=== PATIENT | female | born 1935 | race Caucasian/White ===

== ENCOUNTER 2022-08-22 21:00 | Observation (INO) | payer OTHER, MEDICAID ==
[~2022-08-22] VITALS: Ht 142.2 cm; Wt 72.2 kg
[2022-08-22 21:08] VITALS: BP_SYST 150
--- NOTE | 2022-08-22 21:16 | NUR ---
PT HERE ACCOMPANIED BY HER SON C/O LT FLANK PAIN SINCE THIS AM. PT DENIES N./V/D, DENIES DYSURIA PT STATED THAT GOT WORST WHEN SITTING AND LYING. PT DENIES FEVER. PENDING MD HAWTHORNE
--- NOTE | 2022-08-22 22:16 | NUR ---
PT ASSISTED TO RM3 VIA WHEELCHAIR ACCOMPANIED BY HER SON, REPORT GIVEN TO MADISON LOPEZ
[2022-08-22 22:19] LABS: HEMOGLOBIN 12.7 g/dL (12.0-16.0); WHITE BLOOD COUNT (AUTO) 8.6 K/uL (4.8-10.8)
[2022-08-22 22:29] LABS: MEAN CORPUSCULAR HEMOGLOBIN 34 pg (27-31); MEAN CORPUSCULAR HGB CONC 34 % (32-36); MEAN CORPUSCULAR VOLUME 100 fL (79.0-98.0); PLATELET COUNT (AUTO) 70 K/uL (130-430); RED BLOOD CELL COUNT(AUTO) 3.72 MIL/uL (4.2-6.2); RED CELL DISTRIBUTION WIDTH 14.9 % (9.0-15.0)
[2022-08-22 22:34] LABS: ANION GAP 3 (5-15); CALCIUM 9.9 mg/dL (8.4-11.0); CHLORIDE 103 mmol/L (98-107); CREATININE 1.14 mg/dL (0.55-1.30); GLUCOSE 111 mg/dL (70-99); POTASSIUM 4.4 mmol/L (3.5-5.1); UREA NITROGEN, BLOOD 22 mg/dL (8-21)
[2022-08-22 22:40] LABS: ALANINE AMINOTRANSFERASE 22 U/L (12-78); ALBUMIN 3.7 g/dL (3.4-4.8); ASPARTATE AMINOTRANSFERASE 23 U/L (10-37); TOTAL BILIRUBIN 0.8 mg/dL (0.0-1.0)
[2022-08-22 22:50] LABS: BILIRUBIN,URINE NEGATIVE (NEGATIVE); BLOOD, URINE NEGATIVE (NEGATIVE); CLARITY/URINE CLEAR (CLEAR); COLOR,URINE YELLOW (YELLOW); GLUCOSE,URINE NEGATIVE (NEGATIVE); KETONES,URINE TRACE (NEGATIVE); LEUKOCYTE ESTERASE ,URINE NEGATIVE (NEGATIVE); NITRITE, URINE NEGATIVE (NEGATIVE); PH,URINE 5.5 (5.0-8.0); PROTEIN URINE 2+ (NEGATIVE)
[2022-08-22 22:59] LABS: BAND % (MANUAL) 4 % (0-6); BASOPHILS % (MANUAL) 0 % (0-2); EOSINOPHILS % (MANUAL) 3 % (0-7); MONOCYTES % (MANUAL) 2 % (0-11)
[2022-08-22 23:00] LABS: LYMPHOCYTES % (MANUAL) 46 % (20-46)
[2022-08-22 23:25] LABS: BACTERIA,URINE None Seen /HPF (None Seen); MUCUS,URINE None Seen /LPF (None Seen); RBC,URINE 0-3 /HPF (0-3); WBC,URINE NONE SEEN /HPF (0-3)
--- NOTE | 2022-08-22 23:51 | NUR ---
Pt sating at 86% on RA. Pt put on NC at 2L, now O2 sat at 95%.
[2022-08-23] MEDS ORDERED: ONDANSETRON HCL 4 MG/2 ML VIAL IVP ONE
[2022-08-23] MEDS ORDERED: ASPIRIN 81 MG TAB.CHEW PO ONE
[2022-08-23] MEDS ORDERED: MORPHINE 2 MG/ML INJ. SYRINGE IVP ONE
--- NOTE | 2022-08-23 00:11 | NUR ---
COVID OBTAINED AND GIVEN TO LAB LABELED
--- NOTE | 2022-08-23 00:38 | NUR ---
Shannon lara in ED - 08/23/22 at 0045 by [email or web address] Pt refused abdominal x-ray. made aware.
[2022-08-23] MEDS ORDERED: METOPROLOL TARTRATE 5 MG/5 ML VIAL IVP ONE (02:30)
--- NOTE | 2022-08-23 02:39 | NUR ---
Admit bed requested Patient will be admitted to care of . Admitted to TELE unit. Diagnosis CHF EXACERBATION Inpatient (Yes or No) N Observation (Yes or No) YES Orientation concerns or request close to nursing station (Yes or No) NO Covid Status NEGATIVE On vent or bipap NO Isolation requirements NO Needs a sitter NO From Home (Yes or if No enter name of facility) YES Requires Dialysis (Yes or No) NO Med Rec Completed (Yes of No) PENDING
[2022-08-23] MEDS ORDERED: dilTIAZem HCL IVP 5 MG/ML VIAL IVP PRN (02:45)
--- NOTE | 2022-08-23 03:23 | NUR ---
Influenza swab collected and sent to lab.
--- NOTE | 2022-08-23 03:41 | NUR ---
ADMIT NOTE Received pt from ER to with a diagnosis of CHF. Received SBAR report from JESSICA Rodriguez. Admission process initiated. Patient was transferred from [facility] to bed. Oriented to pain management, safety and call light-teach back done.
--- NOTE | 2022-08-23 03:52 | NUR ---
Patient will be admitted to care of MD Pa. Admitted to Tele unit. Will go to room 112A. Complete and up to date summary report printed. SBAR report given at bedside to receiving JESSICA Teague with opportunity for questions.
[2022-08-23 03:58] VITALS: BP_SYST 122
--- NOTE | 2022-08-23 04:08 | NUR ---
PAGED DR. BELL FOR CRITICAL LAB RESULT FOR TROPONIN-71, WAITING FOR RETURN CALL. WILL CONTINUE TO MONITOR.
--- NOTE | 2022-08-23 04:43 | NUR ---
CONSULTATION PAGED/CALLED Reason for Consultation: CHF Person Who was Notified: YOLANDA Consulting Physician: TROY Clinical Educator Specialty: Ordering Physician: ARABELLA
[2022-08-23] MEDS ORDERED: HYDR12.55 PO (04:56)
[2022-08-23] MEDS ORDERED: METH-374 PO (04:56)
[2022-08-23] MEDS ORDERED: APIX5TAB4 PO (04:56)
[2022-08-23] MEDS ORDERED: LIP10 PO (04:56)
[2022-08-23] MEDS ORDERED: METO-442 PO (04:56)
[2022-08-23 07:23] LABS: BASOPHILS % (AUTO) 0.3 % (0.0-2.0); EOSINOPHILS # (AUTO) 0.2 K/uL (0.0-0.4); EOSINOPHILS % (AUTO) 2.2 % (0.0-4.0); HEMATOCRIT 34.3 % (36-48); HEMOGLOBIN 11.8 g/dL (12.0-16.0); LYMPHOCYTES # (AUTO) 5.3 K/uL (1.0-5.5); LYMPHOCYTES % (AUTO) 66.5 % (20.5-51.5); MEAN CORPUSCULAR HEMOGLOBIN 35 pg (27-31); MEAN CORPUSCULAR HGB CONC 35 % (32-36); MEAN CORPUSCULAR VOLUME 101 fL (79.0-98.0); MONOCYTES # (AUTO) 0.1 K/uL (0.0-1.0); MONOCYTES % (AUTO) 1.6 % (1.7-9.3); NEUTROPHILS # (AUTO) 2.3 K/uL (1.8-7.7); NEUTROPHILS % (AUTO) 29.4 % (40.0-70.0); PLATELET COUNT (AUTO) 56 K/uL (130-430); RED BLOOD CELL COUNT(AUTO) 3.41 MIL/uL (4.2-6.2); RED CELL DISTRIBUTION WIDTH 14.7 % (9.0-15.0)
[2022-08-23 07:45] LABS: ANION GAP 2 (5-15); CALCIUM 9.4 mg/dL (8.4-11.0); CHLORIDE 103 mmol/L (98-107); CREATININE 0.92 mg/dL (0.55-1.30); GLUCOSE 97 mg/dL (70-99); POTASSIUM 4.2 mmol/L (3.5-5.1); UREA NITROGEN, BLOOD 19 mg/dL (8-21)
[2022-08-23 07:49] LABS: ALANINE AMINOTRANSFERASE 17 U/L (12-78); ALBUMIN 3.2 g/dL (3.4-4.8); ASPARTATE AMINOTRANSFERASE 22 U/L (10-37); TOTAL BILIRUBIN 0.6 mg/dL (0.0-1.0)
[2022-08-23 08:15] VITALS: BP_SYST 133
--- NOTE | 2022-08-23 08:16 | NUR ---
Patient stable; resting comfortably in bed with 2D echo in progress with rut Antonio and sonAmado at bedside.
--- NOTE | 2022-08-23 09:20 | NUR ---
Patient stable with right hip xray in progress; son, Freddy at bedside.
[2022-08-23] MEDS ORDERED: METOPROLOL TARTRATE 50 MG TABLET PO ONE (10:00)
[2022-08-23] MEDS ORDERED: ATORVASTATIN 10 MG TABLET PO ONE (10:00)
--- NOTE | 2022-08-23 10:26 | NUR ---
Patient resting comfortably in bed with Dr. Pa and son, Freddy at bedside. Patient stable.
[2022-08-23] MEDS ORDERED: PIPERACILLIN/TAZO 3.375/DEX-IS 50 ML IV SCH (10:45)
--- NOTE | 2022-08-23 10:57 | NUR ---
Scheduled medications given per order. Patient stable with Freddy munoz at bedside.
[2022-08-23] MEDS ORDERED: PIPERACILLIN/TAZO 2.25G/DEX-IS 50 ML IV ONE (11:00)
[2022-08-23] MEDS: D5/0.45 NS 1,000 ML IV SCH (11:13)
--- NOTE | 2022-08-23 11:15 | NUR ---
Patient taken in stable condition via gurney to [facility] Dept for CT lumbar, spine, and pelvis.
[2022-08-23 11:30] VITALS: BP_SYST 117
[2022-08-23] MEDS ORDERED: APIXABAN 2.5 MG TABLET PO ONE (11:30)
[2022-08-23] MEDS ORDERED: methIMAzole 5 MG TABLET PO ONE (11:30)
--- NOTE | 2022-08-23 12:00 | NUR ---
Patient returned to unit in stable condition.
--- NOTE | 2022-08-23 12:41 | NUR ---
Scheduled medications given per order. Patient stable at this time.
[2022-08-23 12:57] LABS: FREE T4 (FREE THYROXINE) 1.5 ng/dl (0.8-1.5); THYROID STIMULATING HORMONE 3.73 uIu/mL (0.36-3.74)
--- NOTE | 2022-08-23 14:37 | NUR ---
Scheduled IV abx given per order. Patient stable; resting comfortably in bed with no distress noted.
[2022-08-23 15:27] VITALS: BP_SYST 133
--- NOTE | 2022-08-23 16:25 | NUR ---
Patient stable; sitting on side of bed with son, Freddy and [id number], Roseann at bedside.
--- NOTE | 2022-08-23 19:00 | NUR ---
Scheduled IV abx given per order with son and [id number] at bedside. Patient stable throughout shift.
[2022-08-23] MEDS: PIPERACILLIN/TAZO 2.25G/DEX-IS 50 ML IV SCH (19:01)
[2022-08-23 20:00] VITALS: BP_SYST 100
[2022-08-23] MEDS: METOPROLOL TARTRATE 50 MG TABLET PO SCH (21:00)
[2022-08-23] MEDS: APIXABAN 2.5 MG TABLET PO SCH (21:00)
[2022-08-24] MEDS: PIPERACILLIN/TAZO 2.25G/DEX-IS 50 ML IV SCH ×4 (00:56→17:35)
[2022-08-24 01:10] VITALS: BP_SYST 149
--- NOTE | 2022-08-24 05:20 | NUR ---
PATIENT WITH DECREASED PLATELETS 56, AND BP 100/83, DR. BELL WAS CALLED X2 WITH NO CALL BACK, MEDICATIONS HELD PER THIS NURSE DUE TO LAB RESULTS AND BP. THIS NURSE TO ENDORSE TO ON COMING SHIFT.
--- NOTE | 2022-08-24 07:05 | NUR ---
receive the patient from the night monitor RN . Ekaterina family on bedside . admitting diagnosis of CHF exacerbation . with bedside commode . no complain of pain . no sign and symptms of respiratory distress . will continue to monitor
--- NOTE | 2022-08-24 09:30 | NUR ---
patient is NPO . . md da silva made rounds . recommended for diet . md da silva ordered swallow evaluation before ordering diet . also check o2 saturation for discharge home .
[2022-08-24] MEDS: METOPROLOL TARTRATE 50 MG TABLET PO SCH (10:03)
[2022-08-24] MEDS: ATORVASTATIN 10 MG TABLET PO SCH (10:03)
[2022-08-24] MEDS: APIXABAN 2.5 MG TABLET PO SCH (10:05)
[2022-08-24] MEDS: D5/0.45 NS 1,000 ML IV SCH (10:12)
--- NOTE | 2022-08-24 10:30 | NUR ---
swallow evaluation was done . suggested mechanical soft diet . full liquid diet. order has been made for the diet . . no signa and symptoms of respiratory distress
--- NOTE | 2022-08-24 11:13 | NUR ---
PT WAS SEEN FOR DYSPHAGIA. PT WAS ABLE TO SAFELY SWALLOW PUREE DIET WITH THIN LIQUID WITHOUT S/S OF ASPIRATION. RECOMMENDATION PUREE DIET WITH THIN LIQUID
[2022-08-24 11:30] VITALS: BP_SYST 90
[2022-08-24] MEDS: methIMAzole 5 MG TABLET PO SCH (14:59)
[2022-08-24 15:32] VITALS: BP_SYST 134
--- NOTE | 2022-08-24 18:41 | NUR ---
will endorse to starter mechanic RN for continuity of care
[2022-08-24 20:00] VITALS: BP_SYST 116
--- NOTE | 2022-08-24 20:00 | NUR ---
OPENING NOTES Received report from day nurse. Pt resting in bed and states no pain. Son is at bedside assisting pt to restroom and monitoring her productive cough. Pt appears tired from coughing and pt is on room air O2 sat 88% - 90%. The plan is to wean pt off O2 and monitor for desaturation over night. Placed pt back on 2L O2 via NC and repositioned from supine to left side. After a few minutes, pt no longer coughing, O2 sat 97%. Son will stay overnight at bedside to assist in mother's care; will continue to monitor
[2022-08-25] MEDS: APIXABAN 2.5 MG TABLET PO SCH ×2 (00:05→09:00)
[2022-08-25] MEDS: METOPROLOL TARTRATE 50 MG TABLET PO SCH ×2 (00:06→08:59)
[2022-08-25] MEDS: D5/0.45 NS 1,000 ML IV SCH ×2 (00:08→12:45)
[2022-08-25] MEDS: PIPERACILLIN/TAZO 2.25G/DEX-IS 50 ML IV SCH ×3 (00:09→12:46)
[2022-08-25 00:22] VITALS: BP_SYST 116
--- NOTE | 2022-08-25 07:30 | NUR ---
received bedside report. pt sitting in bed awake. pt son at bedside. all needs meet at this time. will continue to monitor.
[2022-08-25 08:00] VITALS: BP_SYST 142
[2022-08-25 08:27] LABS: BASOPHILS % (AUTO) 0.4 % (0.0-2.0); EOSINOPHILS # (AUTO) 0.3 K/uL (0.0-0.4); EOSINOPHILS % (AUTO) 3.2 % (0.0-4.0); HEMATOCRIT 36.8 % (36-48); HEMOGLOBIN 12.6 g/dL (12.0-16.0); LYMPHOCYTES # (AUTO) 5.7 K/uL (1.0-5.5); LYMPHOCYTES % (AUTO) 66.2 % (20.5-51.5); MEAN CORPUSCULAR HEMOGLOBIN 34 pg (27-31); MEAN CORPUSCULAR HGB CONC 34 % (32-36); MEAN CORPUSCULAR VOLUME 100 fL (79.0-98.0); MONOCYTES # (AUTO) 0.2 K/uL (0.0-1.0); MONOCYTES % (AUTO) 1.8 % (1.7-9.3); NEUTROPHILS # (AUTO) 2.4 K/uL (1.8-7.7); NEUTROPHILS % (AUTO) 28.4 % (40.0-70.0); PLATELET COUNT (AUTO) 59 K/uL (130-430); RED BLOOD CELL COUNT(AUTO) 3.69 MIL/uL (4.2-6.2); RED CELL DISTRIBUTION WIDTH 14.3 % (9.0-15.0); WHITE BLOOD COUNT (AUTO) 8.6 K/uL (4.8-10.8)
[2022-08-25 08:46] LABS: ANION GAP 3 (5-15); CALCIUM 8.8 mg/dL (8.4-11.0); CHLORIDE 101 mmol/L (98-107); GLUCOSE 97 mg/dL (70-99); POTASSIUM 4.5 mmol/L (3.5-5.1); UREA NITROGEN, BLOOD 17 mg/dL (8-21)
[2022-08-25] MEDS: ATORVASTATIN 10 MG TABLET PO SCH (08:59)
[2022-08-25] MEDS: methIMAzole 5 MG TABLET PO SCH (09:02)
[2022-08-25 09:05] LABS: C-REACTIVE PROTEIN QUANT < 0.2 mg/dL (0-0.5)
[2022-08-25 09:09] LABS: ERYTHROCYTE SEDIMENTATION RATE 5 MM/HR (0-20)
[2022-08-25 12:30] VITALS: BP_SYST 136
[2022-08-25 14:10] VITALS: BP_SYST 132
--- NOTE | 2022-08-25 14:35 | NUR ---
pt dc home. pt sons at bedside. pt and both sons received all education. pt currently on ra. rr even and unlabored. iv removed intact. id band removed. pt has all belongings. pt taken to parking lot via wheelchair. pt taken home via private car by son.
--- NOTE | 2022-08-26 09:39 | NUR ---
Dispo code 01
== END 2022-08-25 14:35 | disposition home health service (06) ==
LOC: SED 21:00 → INTOOBSV 08-23 03:15 → STU 08-23 03:15
PROVIDERS: ADMIT Specialist; ATTEND Specialist
DX: I48.20 Chronic atrial fibrillation, unspecified (principal); Z20.822 Contact with and (suspected) exposure to COVID-19; M25.552 Pain in left hip; R41.82 Altered mental status, unspecified; I11.0 Hypertensive heart disease with heart failure; I50.30 Unspecified diastolic (congestive) heart failure; E78.5 Hyperlipidemia, unspecified; I24.8 Other forms of acute ischemic heart disease; E05.90 Thyrotoxicosis, unspecified without thyrotoxic crisis or storm; M46.1 Sacroiliitis, not elsewhere classified; D69.6 Thrombocytopenia, unspecified; E03.9 Hypothyroidism, unspecified; G89.4 Chronic pain syndrome; I34.81 Nonrheumatic mitral (valve) annulus calcification; J96.00 Acute respiratory failure, unspecified whether with hypoxia or hypercapnia; Z85.6 Personal history of leukemia; Z96.651 Presence of right artificial knee joint; Z79.01 Long term (current) use of anticoagulants; Z98.51 Tubal ligation status; Z79.899 Other long term (current) drug therapy
CPT/HCPCS: 85027; 80053 ×2; 81000; 85007; 36415 ×2; 71045 ×2; 96361 ×3; 96365; 96366 ×3; 96375; 83880 ×2; 84439; 83735; 84443; 85025 ×2; 84484; 93306; 73502; 72131; 72192; 76376; 99285; 87804 ×2; 87426; 93005; 97162; 92610; 80048; 85651; 86140; J3490; J2405; J2543 ×2; J2270; G0378 ×3

== ENCOUNTER 2022-12-24 07:05 | Emergency (ER) | payer OTHER, MEDICAID ==
[~2022-12-24] VITALS: Ht 152.4 cm; Wt 74.8 kg
[~2022-12-24 07:05] MED LIST: APIX5TAB4 PO; HYDR12.55 PO; LIP10 PO; METH-374 PO; METO-442 PO
[2022-12-24 07:29] VITALS: BP_SYST 152
--- NOTE | 2022-12-24 07:37 | NUR ---
PT BIBA AWAKE AND ALERT AOX4, NO SOB OR DISTRESS NOTED. PT WAS BROUGHT IN FOR RUPTURED VERICOSE VEIN ON LEFT FOOT. PT DENIES FALL AND TRAUMA, STATED SHE WAS STANDING WHEN IT RUPTURED. NO ACTIVE BLEEDING UPON ARRIVAL. SON AT BEDSIDE. PAIN SCALE 6/10.
--- NOTE | 2022-12-24 07:42 | NUR ---
MD DR. GRIFFIN AT BEDSIDE
[2022-12-24 07:56] LABS: ANION GAP 6 (5-15); CALCIUM 9.6 mg/dL (8.4-11.0); CHLORIDE 100 mmol/L (98-107); CREATININE 0.83 mg/dL (0.55-1.30); GLUCOSE 115 mg/dL (70-99); UREA NITROGEN, BLOOD 25 mg/dL (8-21)
[2022-12-24 08:00] LABS: ALANINE AMINOTRANSFERASE 21 U/L (12-78); ALBUMIN 3.4 g/dL (3.4-4.8); ASPARTATE AMINOTRANSFERASE 17 U/L (10-37); HEMOGLOBIN 10.9 g/dL (12.0-16.0); MEAN CORPUSCULAR HEMOGLOBIN 34 pg (27-31); MEAN CORPUSCULAR HGB CONC 33 % (32-36); MEAN CORPUSCULAR VOLUME 103 fL (79.0-98.0); PLATELET COUNT (AUTO) 62 K/uL (130-430); RED BLOOD CELL COUNT(AUTO) 3.21 MIL/uL (4.2-6.2); RED CELL DISTRIBUTION WIDTH 15.6 % (9.0-15.0); TOTAL BILIRUBIN 1.4 mg/dL (0.0-1.0); WHITE BLOOD COUNT (AUTO) 14.5 K/uL (4.8-10.8)
[2022-12-24 09:54] LABS: ATYPICAL LYMPHOCYTES % 25 % (0-0); BASOPHILS % (MANUAL) 0 % (0-2); EOSINOPHILS % (MANUAL) 0 % (0-7); LYMPHOCYTES % (MANUAL) 60 % (20-46); MONOCYTES % (MANUAL) 0 % (0-11)
[2022-12-24 11:51] VITALS: BP_SYST 133
--- NOTE | 2022-12-24 11:54 | NUR ---
Patient given written and verbal discharge instructions and verbalizes understanding. ER MD DR ONEILLdiscussed with patient the results and treatment provided. Patient in stable condition. ID arm band removed. Patient educated on pain management and to follow up with PMD. Pain Scale 4/10. Opportunity for questions provided and answered. Medication side effect fact sheet provided.
== END 2022-12-24 11:51 | disposition home or self-care (01) ==
LOC: SED 07:05
DX: I83.893 Varicose veins of bilateral lower extremities with other complications (principal); I11.0 Hypertensive heart disease with heart failure; I50.9 Heart failure, unspecified; D69.6 Thrombocytopenia, unspecified; I48.91 Unspecified atrial fibrillation; Z88.5 Allergy status to narcotic agent; Z79.899 Other long term (current) drug therapy
CPT/HCPCS: 36415; 71045; 80053; 83880; 84484; 85007; 85027; 93005; 93970; 99285

== ENCOUNTER 2022-12-29 14:55 | Emergency (ER) | payer OTHER, MEDICAID ==
[~2022-12-29] VITALS: Ht 160 cm; Wt 81.6 kg
[2022-12-29 14:58] VITALS: BP_SYST 135
[2022-12-29] MEDS ORDERED: KETOROLAC TROMETHAMINE 30 MG VIAL IM ONE (15:15)
[2022-12-29 16:02] LABS: HEMATOCRIT 28.7 % (36-48); HEMOGLOBIN 9.5 g/dL (12.0-16.0); MEAN CORPUSCULAR HEMOGLOBIN 35 pg (27-31); MEAN CORPUSCULAR HGB CONC 33 % (32-36); MEAN CORPUSCULAR VOLUME 105 fL (79.0-98.0); PLATELET COUNT (AUTO) 55 K/uL (130-430); RED BLOOD CELL COUNT(AUTO) 2.73 MIL/uL (4.2-6.2); RED CELL DISTRIBUTION WIDTH 15.5 % (9.0-15.0); WHITE BLOOD COUNT (AUTO) 15.8 K/uL (4.8-10.8)
[2022-12-29 16:15] LABS: BAND % (MANUAL) 1 % (0-6); BASOPHILS % (MANUAL) 0 % (0-2); EOSINOPHILS % (MANUAL) 1 % (0-7); MONOCYTES % (MANUAL) 2 % (0-11)
[2022-12-29 16:16] LABS: LYMPHOCYTES % (MANUAL) 72 % (20-46)
[2022-12-29] MEDS ORDERED: LIDOCAINE 1%, 20 ML MDV 20 ML ONE (16:46)
[2022-12-29] MEDS ORDERED: BACITRACIN 1 GM OINT TP ONE (17:08)
--- NOTE | 2022-12-29 17:24 | NUR ---
Patient given written and verbal discharge instructions and verbalizes understanding. ER MD discussed with patient the results and treatment provided. Patient in stable condition. ID arm band removed. Rx of given. Patient educated on pain management and to follow up with PMD. Pain Scale . Opportunity for questions provided and answered. Medication side effect fact sheet provided.
== END 2022-12-29 17:25 | disposition home or self-care (01) ==
LOC: SED 14:55
DX: I83.892 Varicose veins of left lower extremity with other complications (principal); I11.0 Hypertensive heart disease with heart failure; I50.9 Heart failure, unspecified; Z88.5 Allergy status to narcotic agent; Z79.899 Other long term (current) drug therapy
CPT/HCPCS: 35226; 99284; 85027; 85007; 36415; 96372; J1885; J2001